=== PATIENT | female | born 1960 | race Two or more races ===

== ENCOUNTER 2017-12-12 13:24 | Emergency (ER) | payer MEDICAID ==
[~2017-12-12] VITALS: Ht 152.4 cm; Wt 77.1 kg
[2017-12-12] MEDS ORDERED: OMEG1CAP PO (13:52)
[2017-12-12] MEDS ORDERED: GABA-534 PO (13:52)
[2017-12-12] MEDS ORDERED: PANT40TA4 PO (13:52)
[2017-12-12] MEDS ORDERED: METO25TA6 PO (13:52)
--- NOTE | 2017-12-12 16:16 | NUR ---
Pt resting in [place] with NAD noted, pending MSE.
--- NOTE | 2017-12-12 18:07 | NUR ---
pt left , stated she could not wait for md . ambulated w/o diff/took all belongings.
== END 2017-12-12 18:12 | disposition left against medical advice (07) ==
LOC: ER 13:27
DX: Z53.21 Procedure and treatment not carried out due to patient leaving prior to being seen by health care provider (principal)
CPT/HCPCS: 36415; 86403; 87070; A4663